=== PATIENT | female | born 1955 | race Caucasian/White ===

== ENCOUNTER 2021-04-13 13:44 | Emergency (ER) | payer OTHER, BC ==
[~2021-04-13] VITALS: Ht 157.5 cm; Wt 83.9 kg
[2021-04-13 13:49] VITALS: BP 148/90
--- NOTE | 2021-04-13 14:19 | NUR ---
Patient ambulated to bed 4. RN evaluating the patient at bedside.
--- NOTE | 2021-04-13 14:25 | NUR ---
65YO F BIB C/O NOSE BLEED AND DIZZINESS X 3 HOURS. PT CAME FROM A FLIGHT THIS AM. DENIES TRAUMA OR INJURY TO AREA. IN ED, VSS. AOX4. BLEEDING CONTROLLED WITH NOSE CLIP. CLEAR BREATH SOUNDS. HEART RATE NORMAL REGULAR RHYTHM. ERMD MADE AWARE OF PT STATUS. PMH - DENIES MEDS: NONE ALLERGIES: CIPROFLOXACIN, LEVOFLOXACIN, BACTRIM
--- NOTE | 2021-04-13 15:44 | NUR ---
Dr. Subramanian at pt bedside for further evaluation.
[2021-04-13 16:00] VITALS: BP 148/90
--- NOTE | 2021-04-13 16:01 | NUR ---
Patient discharged with v/s stable. Written and verbal after care instructions given and explained. Patient verbalized understanding. Ambulatory with steady gait. All questions addressed prior to discharge. Advised to follow up with PMD.
[2021-04-13] MEDS ORDERED: IBUP-2213 PO (18:21)
[2021-04-13] MEDS ORDERED: ACET-8386 PO (18:21)
[2021-04-13] MEDS ORDERED: AMOX-1000 PO (19:08)
== END 2021-04-13 16:01 | disposition home or self-care (01) ==
LOC: MED 13:44
DX: R04.0 Epistaxis (principal); R42 Dizziness and giddiness; Z88.1 Allergy status to other antibiotic agents; Z88.2 Allergy status to sulfonamides; Z88.8 Allergy status to other drugs, medicaments and biological substances
CPT/HCPCS: 99281

== ENCOUNTER 2021-04-13 17:15 | Emergency (ER) | payer OTHER, BC ==
[~2021-04-13] VITALS: Ht 157.5 cm; Wt 83.9 kg
[2021-04-13 17:18] VITALS: BP 171/102
[2021-04-13 17:26] VITALS: BP 140/89
--- NOTE | 2021-04-13 17:29 | NUR ---
Pt ambulated to ER bed 6 with a steady gait.
--- NOTE | 2021-04-13 17:31 | NUR ---
Dr. Subramanian is evaluating the patient at bedside.
[2021-04-13] MEDS ORDERED: NACL 0.9% 1,000 ML IV ONE (17:40)
--- NOTE | 2021-04-13 17:55 | NUR ---
Blood sample collected, handed to CPT Nupur at ER bedside.
--- NOTE | 2021-04-13 17:55 | NUR ---
65/F presents to ED with c/o nosebleed. Patient seen here today for same complaint, stating she was on a flight here from [place] when she had her first episode of nosebleed, stating its happened 4 more times since. Patient denies injury or trauma, denies chest pain or shortness of breath, alert and oriented x4 answering questions appropriately, Dr. Subramanian bedside.
[2021-04-13] MEDS ORDERED: KETOROLAC 30 MG/ML VIAL IVP ONE (18:05)
[2021-04-13 18:10] LABS: BASOPHILS % (AUTO) 0.6 % (0.0-2.0); EOSINOPHILS % (AUTO) 0.4 % (0.0-4.0); HEMATOCRIT 41.1 % (36-48); HEMOGLOBIN 13.7 g/dL (12.0-16.0); LYMPHOCYTES # (AUTO) 1.6 K/uL (2.5-16.5); LYMPHOCYTES % (AUTO) 20.5 % (20.5-51.1); MEAN CORPUSCULAR HEMOGLOBIN 30 pg (27-31); MEAN CORPUSCULAR HGB CONC 33 g/dL (33-37); MEAN CORPUSCULAR VOLUME 88.8 fL (80-94); MONOCYTES # (AUTO) 0.6 K/uL (0.8-1.0); NEUTROPHILS # (AUTO) 5.7 K/uL (1.8-7.7); NEUTROPHILS % (AUTO) 71.5 % (42.2-75.2); PLATELET COUNT (AUTO) 318 K/uL (140-450); RED BLOOD CELL COUNT(AUTO) 4.63 MIL/uL (4.20-5.40); RED CELL DISTRIBUTION WIDTH 13.8 % (11.6-13.7)
[2021-04-13] MEDS ORDERED: IBUP-2213 PO (18:21)
[2021-04-13] MEDS ORDERED: ACET-8386 PO (18:21)
[2021-04-13 18:29] LABS: ALBUMIN 4.2 g/dL (3.4-5.0); CARBON DIOXIDE 27.1 mmol/L (21-32); CREATININE 0.8 mg/dL (0.6-1.3); POTASSIUM 4.1 mmol/L (3.5-5.1); TOTAL BILIRUBIN 0.4 mg/dL (0.0-1.0)
--- NOTE | 2021-04-13 18:37 | NUR ---
Dr. Delacruz is evaluating the patient at bedside.
[2021-04-13 19:02] VITALS: BP 140/89
--- NOTE | 2021-04-13 19:04 | NUR ---
Patient discharged with v/s stable. Written and verbal after care instructions given and explained. Patient alert, oriented and verbalized understanding of instructions. Ambulatory with steady gait. All questions addressed prior to discharge. ID band removed. Patient advised to follow up with PMD. Rx of [place] and Ibuprofen given. Patient educated on indication of medication including possible reaction and side effects. Opportunity to ask questions provided and answered.
[2021-04-13] MEDS ORDERED: AMOX-1000 PO (19:08)
== END 2021-04-13 19:04 | disposition home or self-care (01) ==
LOC: MED 17:15
DX: R04.0 Epistaxis (principal); Z79.899 Other long term (current) drug therapy; Z98.890 Other specified postprocedural states; Z88.1 Allergy status to other antibiotic agents; Z88.2 Allergy status to sulfonamides
CPT/HCPCS: 30901; 36415; 80053; 85025; 96361; 96374; 99284; J1885; J7030

== ENCOUNTER 2021-04-16 07:45 | Emergency (ER) | payer OTHER, BC ==
[~2021-04-16] VITALS: Ht 157.5 cm; Wt 83.9 kg
[~2021-04-16 07:45] MED LIST: ACET-8386 PO; AMOX-1000 PO; IBUP-2213 PO
[2021-04-16 07:54] VITALS: BP 154/74
--- NOTE | 2021-04-16 07:57 | NUR ---
Patient ambulated to bed 8 with family. RN evaluating the patient at bedside.
--- NOTE | 2021-04-16 08:05 | NUR ---
65 Y/O FEMALE C/O RIGHT NOSTRIL NOSEBLEEDING SINCE FRIDAY. PT WAS SEEN HERE 04/13 TWICE WITH SAME COMPLAINT. PT RETURNS FOR REMOVAL OF [place]. PT DENIES PAIN. DENIES DIZZINESS. PT A/O X4 WITH EVEN AND UNLABORED RESPIRATIONS. AT BEDSIDE. PMH: DENIES ALLERGIES: CIPRO, BACTRIM, LEVOQUIN
--- NOTE | 2021-04-16 08:11 | NUR ---
Dr. Mcgrath is evaluating the patient at bedside.
== END 2021-04-16 08:21 | disposition home or self-care (01) ==
LOC: MED 07:45
DX: R04.0 Epistaxis (principal); Z79.899 Other long term (current) drug therapy; Z98.890 Other specified postprocedural states; Z88.1 Allergy status to other antibiotic agents; Z88.2 Allergy status to sulfonamides
CPT/HCPCS: 99281